=== PATIENT | female | born 1970 | race Caucasian/White ===

== ENCOUNTER 2016-04-01 02:56 | Observation (INO) | payer OTHER ==
[2016-04-01] MEDS ORDERED: MORPHINE 4 MG/ML INJECTION IV ONE (03:07)
[2016-04-01] MEDS ORDERED: NS 1,000 ML IV ONE (03:07)
[2016-04-01] MEDS ORDERED: ONDANSETRON HCL 4 MG/2 ML VIAL IV ONE ×2 (03:07→10:00)
[2016-04-01 03:08] VITALS: BMI 44.5
--- NOTE | 2016-04-01 03:09 | EDPRACDOC ---
- General Information Information Source: Patient Mode Of Arrival: Car - History of Present Illness Onset: LAST NIGHT HPI: PT PRESENTS WITH RIGHT FLANK PAIN THAT BEGAN TONIGHT. STATES SHE HAS NAUSEA WITHOUT VOMITING. PT HAS HX OF KIDNEY STONES AND STATES THIS PAIN IS CONSISTENT Pain Location: Reports: Right, Flank Pain Radiates To: Reports: None Pain Caused By: Reports: Spontaneous Circumstances: Reports: Unknown Relevant History: Reports: Urolithiasis Currently ?: No Pain Severity: Reports: Moderate Pain Quality: Reports: Sharp, Stabbing Worsened By: Reports: Movement Associated Signs and Symptoms: Reports: Nausea <Madeleine Ferrer - Last Filed: 04/01/16 03:07> <Brent Asif - Last Filed: 04/01/16 05:07> - General Information Chief Complaint: Back Pain Stated Complaint: RT BACK PAIN Time Seen by Provider: 04/01/16 03:05 Home Medications: Home Medications Ferrous Sulfate 325 mg PO DAILY 09/05/15 Pantoprazole Sodium 40 mg PO DAILY 09/05/15 Venlafaxine HCl ER [Effexor XR] 150 mg PO DAILY 09/05/15 Vit A/Vit C/Vit E/Zinc/Copper [Preservision Areds Tablet] 1 tab PO DAILY Mometasone Furoate 1 gm TOP BID PRN 10/19/15 Oxycodone Immediate Release [Oxycodone Immediate Release (OxyIR)] 5 mg PO Q6H PRN #30 tab 10/19/15 Sulfamethoxazole/Trimethoprim [Bactrim Ds Tablet] 1 tab PO BID 10/19/15 Allergies/Adverse Reactions: Allergies Allergy/AdvReac Type Severity Reaction Status Date / Time No Known Allergies Allergy Verified 10/19/15 19:19 ED Past Medical History - History Reviewed Yes Nurses notes reviewed and agree except as marked - Patient Medical History Cardiac History: Reports: Cardiac Catheterization (2010), Hypercholesterolemia. Denies: Hypertension, Congestive Heart Failure, Heart Attack, CABG, Pacemaker Respiratory History: Reports: Asthma. Denies: COPD, Pneumonia, Emphysema, Pulmonary Embolism GI/ History: Reports: Kidney Stones (2010), Gastroesophageal Reflux Musculoskeletal History: Reports: Arthritis, Osteoarthritis Psychological History: Denies: Depression, Anxiety, Bipolar Disorder Systemic History: Reports: Anemia (2014) Surgical History: Reports: Cholecystectomy, Cardiac Catheterization (2010), Tonsillectomy, Tonsillectomy/Adnoidectomy, Other (ablation, knee, tubal.). Denies: CABG, Angioplasty - Family Medical History Reports: Hypertension (mother), Diabetes (mother), Cancer (father), Stroke ( mother), Cardiac Disorders (maternal grandparents) - Social Medical History Smoking Status: Never smoker <Madeleine Ferrer - Last Filed: 04/01/16 03:07> EDM Review of Systems - Review of Systems ROS Negative Except as Marked: Yes All systems reviewed and were negative except as marked <Madeleine Ferrer - Last Filed: 04/01/16 03:07> - Physical Exam Constitutional: Alert Oriented to: Time, Person, Place Last recorded Vital Signs: Oxygen Pulse Oxygen Saturation O2 Device Oxygen Flow Rate Fraction of Inspired Oxygen ( FIO2) - HEENT Head: Normal ( normocephalic) Eye Exam: Normal (PERRL, EOMI, Sclera white) Oropharynx: Normal (Pharynx:Moist without exudate,Gums-no swelling) Nose: No Symptoms Reported (septum midline) Neck: Normal (FROM, trachea at midline) - Respiratory/Cardiovascular Respiratory: Normal - CTA (BBS clear to auscultation without adventitious sounds ) Cardiovascular: Normal (RRR without murmur, gallop or rub) - GI Auscultation: Normal (NABS) Palpation: Normal (Soft,No rebound or guarding, non distended) Tenderness: Moderate, Other (RIGHT FLANK) Obrien's Sign: Negative Rectal Exam: Deferred - Musculoskeletal Back: Normal (Non-Tender) Extremities: Normal (Normal tone, Pulses 2+ No cyanosis or edema, FROM) - Integumentary Skin: Normal, Warm, Dry Lymphatics: Normal (no adenopathy) - Neurologic Memory Impaired: Normal Motor Function: Normal (Normal tone, Pulses 2+ No cyanosis or edema, FROM) Cranial Nerve: Normal (CN II-X11 intact sensation, strength 5/5) Cerebellar: Normal Mood Description: Normal Perception: Normal <Madeleine Ferrer - Last Filed: 04/01/16 03:07> - Physical Exam Last recorded Vital Signs: Last Vital Signs Temp 98.5 F 04/01/16 03:05 Pulse 102 04/01/16 03:05 Resp 22 04/01/16 03:05 BP 162/90 01/04/17 03:05 Pulse Ox 96 04/01/16 03:05 Oxygen Pulse Oxygen Saturation 96 O2 Device Room Air Oxygen Flow Rate Fraction of Inspired Oxygen ( FIO2) <YefriBrentjacquelyn Montemayor - Last Filed: 04/01/16 05:07> ED Back Exam - Neurologic Motor Deficit: None Reflexes: Normal - Musculoskeletal Cervical: Normal Thoracic: Normal Lumbar: Normal Midline: Normal Paraspinous: Tender Straight Leg Raise: Negative Pelvis: Normal <Madeleine Ferrer W - Last Filed: 04/01/16 03:07> - Differential Diagnosis Urinary obstruction, Urolithiasis, Urinary tract infection <Madeleine Ferrer - Last Filed: 04/01/16 03:07> - Re-evaluation Re-evaluation 1 Re-evaluation Time: 05:05 (i asumed care of the patient and interviewed her personally. i discussed the case w dr jaramillo, urology, who willadmit the patient.) - Results 04/01/16 03:20 04/01/16 03:20 WBC 5.1 xk/uL (3.8-10.8) 04/01/16 03:20 RBC 4.72 xM/uL (4.20-5.40) 04/01/16 03:20 Hgb 13.1 g/dL (12.0-16.0) 04/01/16 03:20 Hct 39.4 % (36-47) 04/01/16 03:20 MCV 84 fL (81-99) 04/01/16 03:20 MCH 27.7 pg (27-32) 04/01/16 03:20 MCHC 33.1 g/dl (33-36) 04/01/16 03:20 RDW 14.3 % (11.5-14.5) 04/01/16 03:20 Plt Count 240 xk/uL (130-400) 04/01/16 03:20 MPV 8.3 fL (7.4-10.4) 04/01/16 03:20 Neut % (Auto) 54.2 % (45-76) 04/01/16 03:20 Lymph % (Auto) 31.2 % (17-44) 04/01/16 03:20 [place] % (Auto) 9.4 % (3-10) 04/01/16 03:20 Eos % (Auto) 4.3 % (0-5) 04/01/16 03:20 Baso % (Auto) 0.9 % (0-2) 04/01/16 03:20 Absolute Neuts (auto) 2.75 xk/uL (1.7-8.2) 04/01/16 03:20 Absolute Lymphs (auto) 1.58 xk/uL (0.65-4.75) 04/01/16 03:20 Sodium 143 mEq/L (137-146) 04/01/16 03:20 Potassium 3.7 mEq/L (3.5-5.1) 04/01/16 03:20 Chloride 104 mEq/L (98-107) 04/01/16 03:20 Carbon Dioxide 28 mMOL/L (22-33) 04/01/16 03:20 Anion Gap 15 mEq/L (8-16) 04/01/16 03:20 BUN 16 MG/DL (7-17) 04/01/16 03:20 Creatinine 0.70 MG/DL (0.52-1.04) 04/01/16 03:20 Estimated GFR (MDRD) > 60 mL/min (>=60) 04/01/16 03:20 Glucose 122 MG/DL (70-99) H 04/01/16 03:20 Calculated Osmolality 277 MOs/Kg (270-290) 04/01/16 03:20 Calcium 8.8 MG/DL (8.4-10.2) 04/01/16 03:20 Corrected Calcium 9.0 MG/DL (8.4-10.2) 04/01/16 03:20 Total Bilirubin 0.4 MG/DL (0.2-1.3) 04/01/16 03:20 AST 44 IU/L (14-36) H 04/01/16 03:20 ALT 37 IU/L (9-52) 04/01/16 03:20 Alkaline Phosphatase 133 IU/L (38-126) H 04/01/16 03:20 Total Protein 7.6 G/DL (6.3-8.2) 04/01/16 03:20 Albumin 3.8 G/DL (3.5-5.0) 04/01/16 03:20 Urine Color Dark yellow 04/01/16 03:13 Urine Clarity Sl cldy 04/01/16 03:13 Urine pH 6.0 (5.0-8.0) 04/01/16 03:13 Ur Specific [place] 1.030 (1.003-1.035) 04/01/16 03:13 Urine Protein 2+ (NEG/TRACE) H 04/01/16 03:13 Urine Glucose (UA) Neg (NEGATIVE) 04/01/16 03:13 Urine Ketones Neg (NEGATIVE) 04/01/16 03:13 Urine Occult Blood 3+ (NEG/TRACE) H 04/01/16 03:13 Urine Nitrite Neg (NEGATIVE) 04/01/16 03:13 Urine Bilirubin Neg (NEGATIVE) 04/01/16 03:13 Urine Urobilinogen <2.0 MG/DL (0-1) 04/01/16 03:13 Ur Leukocyte Esterase Neg (NEGATIVE) 04/01/16 03:13 Urine RBC 10-20 (0-5) H 04/01/16 03:13 Ur Epithelial Cells 1+ 04/01/16 03:13 Amorphous Sediment 1+ 04/01/16 03:13 Urine Bacteria 1+ (NEG/FEW) H 04/01/16 03:13 Urine Mucus Mod (NEG/OCC) H 04/01/16 03:13 Urine Yeast Many (NONE) H 04/01/16 03:13 Lab Results 04/01/16 04/01/16 04/01/16 03:20 03:20 03:13 WBC 5.1 RBC 4.72 Hgb 13.1 Hct 39.4 MCV 84 MCH 27.7 MCHC 33.1 RDW 14.3 Plt Count 240 MPV 8.3 Neut % (Auto) 54.2 Lymph % (Auto) 31.2 [place] % (Auto) 9.4 Eos % (Auto) 4.3 Baso % (Auto) 0.9 Absolute Neuts (auto) 2.75 Absolute Lymphs (auto) 1.58 Sodium 143 Potassium 3.7 Chloride 104 Carbon Dioxide 28 Anion Gap 15 BUN 16 Creatinine 0.70 Estimated GFR (MDRD) > 60 Glucose 122 H Calculated Osmolality 277 Calcium 8.8 Corrected Calcium 9.0 Total Bilirubin 0.4 AST 44 H ALT 37 Alkaline Phosphatase 133 H Total Protein 7.6 Albumin 3.8 Urine Color Dark yellow Urine Clarity Sl cldy Urine pH 6.0 Ur Specific [place] 1.030 Urine Protein 2+ H Urine Glucose (UA) Neg Urine Ketones Neg Urine Occult Blood 3+ H Urine Nitrite Neg Urine Bilirubin Neg Urine Urobilinogen <2.0 Ur Leukocyte Esterase Neg Urine RBC 10-20 H Ur Epithelial Cells 1+ Amorphous Sediment 1+ Urine Bacteria 1+ H Urine Mucus Mod H Urine Yeast Many H - Diagnostic Imaging Abdomen Image interpreted by: Radiologist (1x1 cm proximal r ureter stone) <Brent Asif - Last Filed: 04/01/16 05:07> - Departure Disposition: Home Education/Counseling Given To: Patient Education/Counseling Given Regarding: Diagnosis, Treatment, Prognosis, Follow Up <Madeleine Ferrer - Last Filed: 04/01/16 03:07> Decision Time to Discharge: 05:06 - Departure Yes I personally saw and evaluated the patient. Disposition: Admit IP To This Hospital Decision to Admit Time: 05:07 Decision to admit date: 04/01/16 Decision to admit: from ED - Physician Consulted Urology Time Called: 05:07 (dr jaramillo.) <Brent Asif - Last Filed: 04/01/16 05:07> - Departure Condition: Stable Final Diagnosis: Ureteral stone with hydronephrosis Referrals: Brett Salmon II, MD [Primary Care Provider] - One Week
[2016-04-01 03:35] LABS: AUTOMATED BASOPHIL 0.9 % (0-2); AUTOMATED EOSINOPHIL 4.3 % (0-5); AUTOMATED LYMPH 31.2 % (17-44); AUTOMATED MONOCYTE 9.4 % (3-10); AUTOMATED NEUTROPHIL 54.2 % (45-76); MPV 8.3 fL (7.4-10.4)
[2016-04-01 03:37] LABS: AMORPHOUS 1+; LEUKOCYTES/URINE NEG (NEGATIVE); NITRITE/URINE NEG (NEGATIVE); URINE OCCULT BLOOD 3+ (NEG/TRACE)
[2016-04-01] MEDS ORDERED: FLUCONAZOLE 150 MG TAB PO ONE (03:47)
[2016-04-01 03:55] LABS: BLOOD UREA NITROGEN 16 MG/DL (7-17); CALCIUM 8.8 MG/DL (8.4-10.2); CALCULATED OSMOLALITY 277 MOs/Kg (270-290); CHLORIDE 104 mEq/L (98-107); GLUCOSE 122 MG/DL (70-99); SODIUM LEVEL 143 mEq/L (137-146); TOTAL PROTEIN 7.6 G/DL (6.3-8.2)
[2016-04-01] MEDS ORDERED: PROMETHAZINE 25 MG/ML VIAL IV ONE (04:03)
[2016-04-01] MEDS ORDERED: HYDROmorphone 1 MG INJECTION IV ONE (04:03)
--- NOTE | 2016-04-01 04:06 | DIRPT ---
CLINICAL DATA: Acute onset of right flank pain. Initial encounter. EXAM: CT ABDOMEN AND PELVIS WITHOUT CONTRAST TECHNIQUE: Multidetector CT imaging of the abdomen and pelvis was performed following the standard protocol without IV contrast. COMPARISON: CT of the abdomen and pelvis from 08/09/2015 FINDINGS: The visualized lung bases are clear. The liver and spleen are unremarkable in appearance. The patient is status post cholecystectomy, with clips noted at the gallbladder fossa. The pancreas and adrenal glands are unremarkable. There is mild right-sided hydronephrosis, with a large obstructing 1.1 x 1.0 cm stone proximally at the right ureteropelvic junction. The left kidney is unremarkable in appearance. No nonobstructing renal stones are identified. No free fluid is identified. The small bowel is unremarkable in appearance. The stomach is within normal limits. No acute vascular abnormalities are seen. The appendix is normal in caliber, without evidence of appendicitis. The colon is unremarkable in appearance. The bladder is relatively decompressed and not well assessed. The uterus is unremarkable in appearance. The ovaries are relatively symmetric. No suspicious adnexal masses are seen. No inguinal lymphadenopathy is seen. No acute osseous abnormalities are identified. The patient is status post thoracolumbar spinal fusion at T11-L3. IMPRESSION: Mild right-sided hydronephrosis, with a large obstructing 1.1 x 1.0 cm stone proximally at the right ureteropelvic junction. Electronically Signed By: Jose Johnson M.D. On: 04/01/2016 04:04
[2016-04-01] MEDS ORDERED: ONDANSETRON HCL 4 MG/2 ML VIAL IV PRN ×3 (05:18→12:51)
[2016-04-01] MEDS: HYDROmorphone 1 MG INJECTION IV PRN ×2 (05:58→09:02)
[2016-04-01] MEDS ORDERED: D5W-1/4NS 1,000 ML IV SCH (06:00)
[2016-04-01] MEDS ORDERED: Vaccine Screening Complete SCH (07:00)
--- NOTE | 2016-04-01 09:49 | HISTPHYS ---
- Chief Complaint Pain in the rt flank few hours. - Past Medical History Cardiac History: Reports: Cardiac Catheterization (2010), Hypercholesterolemia, Other (Had nerve ablasion in the heart in 2010 for arrhythmia). Denies: Hypertension, Congestive Heart Failure, Heart Attack, CABG, Pacemaker Respiratory History: Reports: Asthma. Denies: COPD, Pneumonia, Emphysema, Pulmonary Embolism GI/ History: Reports: Kidney Stones (2010), Gastroesophageal Reflux. Denies: Hepatitis (type) Musculoskeletal History: Reports: Arthritis, Osteoarthritis Systemic History: Reports: Anemia (2014) Psychological History: Denies: Anxiety, Bipolar Disorder, Depression - Surgical History Reports: Back Surgery (1996), Cholecystectomy, Knee Surgery (2010), T&A. Denies : Angioplasty, CABG, Coronary Stent - Family History Reports: Hypertension (mother), Diabetes (mother), Cancer (father), Stroke ( mother), Cardiac Disorders (maternal grandparents) - Allergies Allergies No Known Allergies Allergy (Verified 10/19/15 19:19) - Medications Home Medications Ferrous Sulfate 325 mg PO BID 09/05/15 Pantoprazole Sodium 40 mg PO DAILY 09/05/15 Venlafaxine HCl ER [Effexor XR] 150 mg PO DAILY 09/05/15 Vit A/Vit C/Vit E/Zinc/Copper [Preservision Areds Tablet] 1 tab PO DAILY Mometasone Furoate 1 gm TOP BID PRN 10/19/15 - Social History Travel Outside of [place] in the Last 3 Months?: No Smoking Status: Never smoker - Exam Vital Signs: Temperature: 98.2 F (04/01/16 05:58) HR: 75 (04/01/16 05:58) RR: 20 (04/01/16 05:58) BP: 148/90 (04/01/16 05:58) Pulse Ox: 95 (04/01/16 05:58) General: Alert, Oriented x3, Cooperative, No acute distress, Obese HEENT: Normal Cardiovascular: Regular rate Gastrointestinal: Soft, Other (Tender in the rt CVA on percussion) Psych/Mental Status: Appropriate - Labs Result Diagrams: 04/01/16 03:20 04/01/16 03:20 Cysto retrograde pyelogram and placement of DJ stent on the rt side.This was discussed with the Pt nd her who was with her. Plan to do ESWL at later date.
[2016-04-01] MEDS ORDERED: SUCCINYLCHOLINE 20 MG/1 ML INJ 10 ML MDV IV ONE (10:00)
[2016-04-01] MEDS ORDERED: MIDAZOLAM 2 MG/2 ML VIAL IV ONE (10:00)
[2016-04-01] MEDS ORDERED: FENTANYL 250 MCG/5 ML VIAL IV ONE (10:00)
[2016-04-01] MEDS ORDERED: LIDOCAINE 100 MG PFS IV ONE (10:00)
[2016-04-01] MEDS ORDERED: PROPOFOL 200 MG/20 ML VIAL IV ONE (10:00)
[2016-04-01] MEDS ORDERED: HYDROmorphone 1 MG INJECTION IV PRN ×2 (11:26)
[2016-04-01] MEDS ORDERED: MEPERIDINE 25 MG/ML TUBEX IV PRN (11:26)
[2016-04-01] MEDS ORDERED: PROMETHAZINE 25 MG/ML VIAL IV PRN ×2 (11:26)
[2016-04-01] MEDS ORDERED: hydrALAZINE 20 MG/ML VIAL IV PRN (11:26)
[2016-04-01] MEDS ORDERED: FENTANYL 100 MCG/2 ML VIAL IV PRN ×2 (11:26)
[2016-04-01] MEDS ORDERED: LABETALOL 20 MG/4 ML SYRINGE IV PRN (11:26)
[2016-04-01] MEDS ORDERED: ONDANSETRON HCL 4 MG ODT TAB PO PRN (11:26)
--- NOTE | 2016-04-01 11:27 | SC.ANESPOS ---
Post-Anesthesia Note LOC: [facility] on Calling Post-Anesthesia Assessment: Awake, Returned to Baseline, Hemodynamically Stable , Pain Control Adequate Phase I & II Recovery Complete: Yes Apparent Anesthesia Complication: No : N - Vital Signs Blood Pressure: 145/96 Pulse: 103 Resp Rate: 18 O2 Sat: 95 Temp: 97.1 F
[2016-04-01] MEDS ORDERED: ISOVUE-300 (61%) 50 ML ONE (11:50)
--- NOTE | 2016-04-01 11:58 | HIM.ANES ---
Anesthesia Evaluation & Plan - Focused Review of Systems Now: No Cardiac History: Yes: Hx Cardiac Catheterization (2010 - No ischemia), Hx Cardia Arrhythmia (Heart beats too fast at times - S/P ablation - stable), Hx Cardiac Disorders (Neg perfusion study ) No: Hx Hypertension, Hx Angina, Hx Heart Attack, Hx Angioplasty, Hx Coronary Stent, Hx Pacemaker, Hx Internal Defibrillator, Hx Heart Murmur, Hx Afib/ Aflutter, Hx Abdominal Aortic Aneurysm, Hx Abnormal Cholesterol/Hyperlipidemia, Hx Aneurysm, Hx Cardiomegaly, Hx Congestive Heart Failure, Hx Coronary Artery Bypass Graft, Hx Deep Vein Thrombosis HEENT: Yes: Hx Vision Problem (wears glasses), Other HEENT Problems No: Cataracts, Cataract Removal, Glaucoma, Macular Degeneration, Hx Dysphagia , Temporomandibular Joint Disease (TMJ), Hx Deviated Septum, Hx Ear Problem Respiratory: Yes: Hx Asthma, Hx Snoring No: Hx Emphysema, Hx Chronic Obstructive Pulmonary Disease (COPD), Hx Sleep Apnea, Hx Home O2, Hx BiPAP Dependent, Hx CPAP Dependent, Hx Recent Cold/Flu, Hx Pneumonia Gastrointestinal: Yes: Hx Gastroesophageal Reflux Disease (Controlled) Neurological/Musculoskeletal: No: Hx Neurological Disorders Psychological: No Hx Anxiety, No Hx Depression, No Hx Mental/Emotional Disorders , No Hx Bipolar Disorder Blood/Autoimmune: Yes: Hx Blood Transfusions (1996), Hx Anemia (2014) No: Hx AIDS, Hx Hepatitis (type) Smoking Status: Never smoker Hx Stress Test (date): Yes (2010) Hx Echocardiogram (date): Yes (2010) Hx Chest Xray (date): Yes (2010) Surgical History: Yes: T&A, Cholecystectomy, Back (1996), Knee (2010), Other ( ablation, knee, tubal.) No: Ablation, Carotid Endarterectomy, CABG, Nasal Other Surgical History: Knee replacement 2010, Tonsil removed, leg surgery from [facility], back surgery, - Focused Physical Exam NPO since: 0200 Mallampati: Class II Neck: Full Range of Motion Dental: Normal - no significant findings Cardiovascular/Chest: Normal Respiratory: Lungs clear Any problems with anesthesia, including nausea and vomiting?: No Any relatives with a history of Malignant Hyperthermia?: No Beta Bradley given (if appropriate): N/A Other: Problem List Problem Status Onset Ureteral stone with hydronephrosis Acute Accidental fall Acute Anemia Acute Angina Acute Cellulitis Acute GERD (gastroesophageal reflux disease) Acute Leg pain Acute Dyslipidemia Chronic Dyspnea Chronic Obesity Chronic Allergies Allergy/AdvReac Type Severity Reaction Status Date / Time No Known Allergies Allergy Verified 10/19/15 19:19 Home Medications Medication Instructions Recorded Last Taken Type Ferrous Sulfate 325 mg PO BID 09/05/15 03/31/16 History Pantoprazole Sodium 40 mg PO DAILY 09/05/15 03/31/16 History Venlafaxine HCl ER [Effexor XR] 150 mg PO DAILY 09/05/15 03/31/16 History Vit A/Vit C/Vit E/Zinc/Copper 1 tab PO DAILY 09/05/15 03/31/16 History [Preservision Areds Tablet] Mometasone Furoate 1 gm TOP BID PRN 10/19/15 10/19/15 History Height and Weight Patient's weight 267 lb 4.8 oz Weight (Calculated Kilograms) 121.245 Vital Signs Temperature 97.1 F L 04/01/16 11:27 Pulse Rate 103 04/01/16 11:27 Respiratory Rate 18 04/01/16 11:27 Blood Pressure 145/96 04/01/16 11:27 Pulse Oxygen Saturation 95 04/01/16 11:27 - Anesthetic Plan Anesthesia Type: General ASA Class: 2 -: I have examined this patient and reviewed the medical record. The patient has been assessed prior to anesthesia. Risks and benefits of anesthesia and anesthetic technique options have been discussed and all questions answered. The patient accepts the risk and desires me to proceed with the planned anesthetic.
[2016-04-01] MEDS ORDERED: Levofloxacin 500 mg/100 ml D5W 500 MG/100 ML RTU IV ONE ×3 (12:10→13:00)
[2016-04-01] MEDS ORDERED: HYDROCODONE 5 MG/ACETAMIN 325 MG TAB PO PRN (12:51)
[2016-04-01] MEDS ORDERED: OXYCODONE HCL 5 MG TABLET PO PRN (12:56)
[2016-04-01] MEDS ORDERED: D5W/LR 1,000 ML IV SCH (13:00)
--- NOTE | 2016-04-01 13:04 | HIMOPRPT ---
DATE OF PROCEDURE: 04/01/16 PREOPERATIVE DIAGNOSIS: [Rt UPJ stone with obstruction]. POSTOPERATIVE DIAGNOSIS: [Same]. PROCEDURE PERFORMED: Cystoscopy, [right/left] retrograde pyelogram, and double- J ureteral stent.. ANESTHESIA: General by endotracheal tube ANESTHESIOLOGIST:. SURGEON: Sachin Livingston MD PROCEDURE IN DETAIL: The patient was brought to the operating room and placed in supine position. General anesthesia by endotracheal tube was given. Once adequate level of anesthesia was obtained, the patient was placed in lithotomy position. Genitalia was prepped and draped in usual sterile manner. The cystoscopy was carried down through [23] size of operative cystoscope. The meatus is normal.Bladder interior was examined. Both ureteral orifices were seen. There is no eflux on the right side. No other abnormality within the bladder was noted. [Righ retrograde pyelogram was carried out through 5-Micronesian cone-tipped ureteral catheter which was introduced without any difficulty. Contrast went up to the stone and went to the renal pelvis. a guidewire was passed and it bypassed the stone, went to the renal pelvis. and a guide wire was passed . This pushed the stone into the renal pelvis.. In the end of the procedure, a double-J ureter stent, size [6]-Micronesian and 24 cm long with a tether was inserted. Tether was brought out through the urethra and taped. The position of the stent was checked and found to be very adequate upper end in the renal pelvis and lower end in the bladder. The patient was then returned to the recovery room in stable and satisfactory condition. Discharge Medications:Oxycodon 5mg q4h PRN (30), Levaquin 5oomg daily for 7 days. Follow-up: The patient will be discharged to be followed in the office and will plan ESWL as soon as possible.
--- NOTE | 2016-04-01 13:07 | PCM.DCS92 ---
Discharge Disposition: Home Discharge Condition: Improved Cognitive Discharge Status: Unimpaired Fuctional Discharge Status: Independent Physician Follow up/Referrals: Brett Salmon II, MD [Primary Care Provider] - One Week (Follow up with Dr. Livingston in 1 week) Diet at Discharge: As Tolerated, Regular Activity: No Restrictions, As Tolerated, Other (see below) (Do not pull the string from the urethra.) - DC Summary Notes Hospital Course Note:: Discharge summary on patient named GALA DICKINSON admitted to [facility] on 04/01/16 by Sachin Livingston MD. Date of discharge is []. Following admission the pt was fgiven analgesics and she underwent cysto retrograde pyelogram and placement of a DJ stent after the stone was kmanipulated. She will be discharged and followed in the office and ESWL will be arranged as soon as possible.
[2016-04-01 16:27] VITALS: BP 145/96; PULSE 103; TEMP 97.1
[2016-04-02] MEDS ORDERED: FLU VACCINE (Afluria) 0.5 ML DOSE IM ONE (08:00)
[2016-04-02] MEDS ORDERED: PNEUMOCOCCAL 0.5 ML VIAL IM ONE (08:00)
[2016-04-02] MEDS ORDERED: LEVOFLOXACIN 500 MG TAB PO SCH (09:00)
== END 2016-04-01 17:58 | disposition home or self-care (01) ==
LOC: ED 02:56 → MPS3 05:05
PROVIDERS: ADMIT Urology; ATTEND Urology
PROC: BT1D1ZZ Fluoroscopy of Right Kidney, Ureter and Bladder using Low Osmolar Contrast (ICD-10-PCS; 2016-04-01)
PROC: 0T768DZ Dilation of Right Ureter with Intraluminal Device, Via Natural or Artificial Opening Endoscopic (ICD-10-PCS; principal; 2016-04-01 12:00)
DX: N20.0 Calculus of kidney (principal); E78.00 Pure hypercholesterolemia, unspecified; Z79.899 Other long term (current) drug therapy
CPT/HCPCS: 36415; 52005; 52332; 74176; 80053; 81001; 85025; 96361; 96374; 96375; 99284; C2617; G0378; J0330; J1170; J1956; J2001; J2250; J2270; J2405; J2550; J3010; J3490

== ENCOUNTER 2016-04-13 18:12 | Emergency (ER) | payer OTHER ==
[2016-04-13 18:19] VITALS: TEMP 99.4; BMI 43.4
[2016-04-13] MEDS ORDERED: HYDROmorphone 1 MG INJECTION IV ONE (18:51)
[2016-04-13] MEDS ORDERED: SODIUM CHLORIDE 0.9% 3 ML FLUSH FLUSH PRN (18:51)
[2016-04-13] MEDS ORDERED: NS 1,000 ML IV ONE (18:51)
[2016-04-13] MEDS ORDERED: ONDANSETRON HCL 4 MG/2 ML VIAL IV STA (18:51)
--- NOTE | 2016-04-13 18:54 | EDPRACDOC ---
- General Information Chief Complaint: Abdominal Pain Stated Complaint: FLANK PAIN Time Seen by Provider: 04/13/16 18:34 Information Source: Patient Mode Of Arrival: Car Home Medications: Home Medications Ferrous Sulfate 325 mg PO DAILY 09/05/15 Pantoprazole Sodium 40 mg PO DAILY 09/05/15 Venlafaxine HCl ER [Effexor XR] 150 mg PO DAILY 09/05/15 Vit A/Vit C/Vit E/Zinc/Copper [Preservision Areds Tablet] 1 tab PO DAILY Levofloxacin [Levaquin] 500 mg PO DAILY 04/01/16 Ciprofloxacin HCl [Cipro] 500 mg PO BID 04/13/16 Hydrocodone Bit/Acetaminophen [[place] 7.5-325 Tablet] 1 tab PO QID PRN 04/13/16 Ketorolac Tromethamine [Toradol] 10 mg PO Q6H PRN #20 tab 04/13/16 Oxycodone HCl [Roxicodone] 5 mg PO Q4-6H PRN #30 tablet 04/13/16 Allergies/Adverse Reactions: Allergies Allergy/AdvReac Type Severity Reaction Status Date / Time No Known Allergies Allergy Verified 04/10/16 08:31 - History of Present Illness Onset: sea captain HPI: PT PRESENTS WITH LOW GRADE FEVER, LEFT FLANK PAIN, AND NAUSEA. RECENT LITHOTRIPSY 4 DAYS AGO FOR RIGHT SIDED STONES. Pain Location: Reports: Flank (LEFT) Last Menstrual Period: 2 weeks HOP STRAINER : No ED Past Medical History - Patient Medical History Cardiac History: Reports: Cardiac Catheterization (2010 - No ischemia), Hypercholesterolemia. Denies: Coronary Artery Disease, Hypertension, Congestive Heart Failure, Heart Attack, CABG, Pacemaker Respiratory History: Reports: Asthma. Denies: COPD, Pneumonia, Emphysema, Pulmonary Embolism GI/ History: Reports: Kidney Stones (2010), Gastroesophageal Reflux Musculoskeletal History: Reports: Arthritis, Osteoarthritis Psychological History: Reports: Anxiety. Denies: Depression, Bipolar Disorder Systemic History: Reports: Anemia (2014). Denies: Cancer Surgical History: Reports: Cholecystectomy, Cardiac Catheterization (2010 - No ischemia), Tonsillectomy, Tonsillectomy/Adnoidectomy, Other (ablation, knee, tubal.). Denies: CABG, Hysterectomy, Angioplasty - Family Medical History Reports: Hypertension (father), Diabetes (mother, grandparents), Cancer (Dad, colon), Stroke (mother), Cardiac Disorders (grandparents) - Social Medical History Smoking Status: Never smoker EDM Review of Systems - Review of Systems ROS Negative Except as Marked: Yes All systems reviewed and were negative except as marked Constitutional: Fever, Fatigue, Weakness Respiratory: negative: Shortness of Breath Cardiovascular: negative: Chest Pain Gastrointestinal: Nausea, Pain (LEFT FLANK TO LLQ). negative: Diarrhea Genitourinary: Hematuria. negative: Dysuria - Physical Exam Constitutional: Alert, Distress. negative: Well appearing Oriented to: Time, Person, Place Last recorded Vital Signs: Last Vital Signs Temp 99.4 F 04/13/16 18:14 Pulse 90 04/13/16 22:01 Resp 20 04/13/16 22:01 BP 116/58 L 04/13/16 22:01 Pulse Ox 95 04/13/16 22:01 Oxygen Pulse Oxygen Saturation 95 O2 Device Room Air Oxygen Flow Rate Fraction of Inspired Oxygen ( FIO2) - HEENT Head: negative: Deformity, Laceration Eye Exam: negative: Conjunctival Injection, Pale Conjunctiva Oropharynx: Membranes Dry Nose: negative: Congestion Neck: negative: Limited ROM - Respiratory/Cardiovascular Respiratory: Normal - CTA. negative: Tachypnea Cardiovascular: Tachycardia. negative: Bradycardia, Irregular - GI Auscultation: Normal Palpation: Normal Tenderness: Non tender - Musculoskeletal Back: CVA Tenderness (LEFT) - Integumentary Skin: Warm, Dry. negative: Rash - Neurologic Memory Impaired: Normal Motor Function: Normal Mood Description: Anxious, Appropriate Thought: Coherent Perception: Normal - Re-evaluation Re-evaluation 1 Re-evaluation Time: 22:[address] MCDANIEL. RECOMMENDS 1 GM ROCEPHIN AND INCREASE PAIN MEDS FOR HOME WITH FOLLOW UP IN OFFICE TOMORROW OR WEDNESDAY. - Results 04/13/16 18:21 04/13/16 18:21 WBC 12.2 xk/uL (3.8-10.8) H 04/13/16 18:21 RBC 4.81 xM/uL (4.20-5.40) 04/13/16 18:21 Hgb 13.2 g/dL (12.0-16.0) 04/13/16 18:21 Hct 40.3 % (36-47) 04/13/16 18:21 MCV 84 fL (81-99) 04/13/16 18:21 MCH 27.5 pg (27-32) 04/13/16 18:21 MCHC 32.9 g/dl (33-36) L 04/13/16 18:21 RDW 14.2 % (11.5-14.5) 04/13/16 18:21 Plt Count 279 xk/uL (130-400) 04/13/16 18:21 MPV 8.6 fL (7.4-10.4) 04/13/16 18:21 Neut % (Auto) 73.0 % (45-76) 04/13/16 18:21 Lymph % (Auto) 16.8 % (17-44) L 04/13/16 18:21 [place] % (Auto) 8.4 % (3-10) 04/13/16 18:21 Eos % (Auto) 1.2 % (0-5) 04/13/16 18:21 Baso % (Auto) 0.6 % (0-2) 04/13/16 18:21 Absolute Neuts (auto) 8.91 xk/uL (1.7-8.2) H 04/13/16 18:21 Absolute Lymphs (auto) 1.95 xk/uL (0.65-4.75) 04/13/16 18:21 Sodium 138 mEq/L (137-146) 04/13/16 18:21 Potassium 4.2 mEq/L (3.5-5.1) 04/13/16 18:21 Chloride 102 mEq/L (98-107) 04/13/16 18:21 Carbon Dioxide 25 mMOL/L (22-33) 04/13/16 18:21 Anion Gap 15 mEq/L (8-16) 04/13/16 18:21 BUN 12 MG/DL (7-17) 04/13/16 18:21 Creatinine 0.70 MG/DL (0.52-1.04) 04/13/16 18:21 Estimated GFR (MDRD) > 60 mL/min (>=60) 04/13/16 18:21 Glucose 107 MG/DL (70-99) H 04/13/16 18:21 Calculated Osmolality 266 MOs/Kg (270-290) L 04/13/16 18:21 Calcium 9.3 MG/DL (8.4-10.2) 04/13/16 18:21 Total Bilirubin 0.6 MG/DL (0.2-1.3) 04/13/16 18:21 AST 42 IU/L (14-36) H 04/13/16 18:21 ALT 94 IU/L (9-52) H 04/13/16 18:21 Alkaline Phosphatase 195 IU/L (38-126) H 04/13/16 18:21 Total Protein 8.0 G/DL (6.3-8.2) 04/13/16 18:21 Albumin 4.3 G/DL (3.5-5.0) 04/13/16 18:21 Urine Color Dark yellow 04/13/16 18:16 Urine Clarity Hazy 04/13/16 18:16 Urine pH 6.0 (5.0-8.0) 04/13/16 18:16 Ur Specific [place] 1.020 (1.003-1.035) 04/13/16 18:16 Urine Protein 2+ (NEG/TRACE) H 04/13/16 18:16 Urine Glucose (UA) Neg (NEGATIVE) 04/13/16 18:16 Urine Ketones Neg (NEGATIVE) 04/13/16 18:16 Urine Occult Blood 3+ (NEG/TRACE) H 04/13/16 18:16 Urine Nitrite Neg (NEGATIVE) 04/13/16 18:16 Urine Bilirubin Neg (NEGATIVE) 04/13/16 18:16 Urine Urobilinogen 0.2 MG/DL (0-1) 04/13/16 18:16 Ur Leukocyte Esterase 1+ (NEGATIVE) H 04/13/16 18:16 Urine RBC Tntc (0-5) H 04/13/16 18:16 Urine WBC 30-40 (0-5) H 04/13/16 18:16 Ur Epithelial Cells 2+ 04/13/16 18:16 Urine Bacteria Few (NEG/FEW) 04/13/16 18:16 Urine Mucus Mod (NEG/OCC) H 04/13/16 18:16 Lab Results 04/13/16 04/13/16 04/13/16 18:21 18:21 18:16 WBC 12.2 H RBC 4.81 Hgb 13.2 Hct 40.3 MCV 84 MCH 27.5 MCHC 32.9 L RDW 14.2 Plt Count 279 MPV 8.6 Neut % (Auto) 73.0 Lymph % (Auto) 16.8 L [place] % (Auto) 8.4 Eos % (Auto) 1.2 Baso % (Auto) 0.6 Absolute Neuts (auto) 8.91 H Absolute Lymphs (auto) 1.95 Sodium 138 Potassium 4.2 Chloride 102 Carbon Dioxide 25 Anion Gap 15 BUN 12 Creatinine 0.70 Estimated GFR (MDRD) > 60 Glucose 107 H Calculated Osmolality 266 L Calcium 9.3 Total Bilirubin 0.6 AST 42 H ALT 94 H Alkaline Phosphatase 195 H Total Protein 8.0 Albumin 4.3 Urine Color Dark yellow Urine Clarity Hazy Urine pH 6.0 Ur Specific [place] 1.020 Urine Protein 2+ H Urine Glucose (UA) Neg Urine Ketones Neg Urine Occult Blood 3+ H Urine Nitrite Neg Urine Bilirubin Neg Urine Urobilinogen 0.2 Ur Leukocyte Esterase 1+ H Urine RBC Tntc H Urine WBC 30-40 H Ur Epithelial Cells 2+ Urine Bacteria Few Urine Mucus Mod H Decision Time to Discharge: 22:57 - Departure Yes I personally saw and evaluated the patient. Disposition: Home Condition: Stable Final Diagnosis: Left flank pain Instructions: Acute Abdominal Pain (ED), Non-pharmacological Pain Management Therapies for Adults (GEN), Abdominal Pain (ED) Education/Counseling Given To: Patient Education/Counseling Given Regarding: Diagnosis, Treatment, Prognosis, Follow Up Referrals: Brett Salmon II, MD [Primary Care Provider] - As Needed Antolin Mcdaniel MD [Staff Physician] - Call for Appointment Prescriptions: Ketorolac Tromethamine [Toradol] 10 mg PO Q6H PRN #20 tab PRN Reason: Pain Oxycodone HCl [Roxicodone] 5 mg PO Q4-6H PRN #30 tablet PRN Reason: Breakthrough Pain
[2016-04-13 18:59] LABS: AUTOMATED BASOPHIL 0.6 % (0-2); AUTOMATED EOSINOPHIL 1.2 % (0-5); AUTOMATED LYMPH 16.8 % (17-44); AUTOMATED MONOCYTE 8.4 % (3-10); MPV 8.6 fL (7.4-10.4)
[2016-04-13 19:07] LABS: RBC/URINE TNTC (0-5); WBC/URINE 30-40 (0-5)
[2016-04-13 19:09] LABS: URINE OCCULT BLOOD 3+ (NEG/TRACE)
[2016-04-13 19:10] LABS: LEUKOCYTES/URINE 1+ (NEGATIVE); NITRITE/URINE NEG (NEGATIVE)
[2016-04-13 19:15] LABS: BLOOD UREA NITROGEN 12 MG/DL (7-17); CALCIUM 9.3 MG/DL (8.4-10.2); CALCULATED OSMOLALITY 266 MOs/Kg (270-290); CHLORIDE 102 mEq/L (98-107); GLUCOSE 107 MG/DL (70-99); SODIUM LEVEL 138 mEq/L (137-146)
[2016-04-13] MEDS ORDERED: Pharmacy Review for Metformin - IV Contrast Given SCH (21:00)
[2016-04-13 22:02] VITALS: BP 116/58; PULSE 90
--- NOTE | 2016-04-13 22:33 | DIRPT ---
CLINICAL DATA: Acute onset of left flank pain and nausea. Recent right-sided lithotripsy. Initial encounter. EXAM: CT ABDOMEN AND PELVIS WITH CONTRAST TECHNIQUE: Multidetector CT imaging of the abdomen and pelvis was performed using the standard protocol following bolus administration of intravenous contrast. CONTRAST: 100 mL of Isovue 370 IV contrast COMPARISON: CT of the abdomen and pelvis performed 04/01/2016, and abdominal radiograph performed 04/10/2016 FINDINGS: The visualized lung bases are clear. The liver and spleen are unremarkable in appearance. The patient is status post cholecystectomy, with clips noted along the gallbladder fossa. The pancreas and adrenal glands are unremarkable. Vaguely decreased enhancement is suggested along the posterior aspect of the right kidney, raising concern for underlying pyelonephritis. Scattered nonobstructing right renal stones measure up to 8 mm in size. The right ureteral stent is noted in expected position, with mild inflammation noted about the right renal pelvis and proximal ureter. The left kidney is unremarkable in appearance. No perinephric stranding is appreciated. No free fluid is identified. The small bowel is unremarkable in appearance. The stomach is within normal limits. No acute vascular abnormalities are seen. The appendix is normal in caliber, without evidence of appendicitis. The colon is unremarkable in appearance. The bladder is mildly distended and grossly unremarkable. The uterus is within normal limits. The ovaries are grossly symmetric. No suspicious adnexal masses are seen. No inguinal lymphadenopathy is seen. No acute osseous abnormalities are identified. Sclerotic change is noted at the superior endplate of L5. The patient is status post thoracolumbar spinal fusion at T11-L3. IMPRESSION: 1. Vaguely decreased enhancement suggested along the posterior aspect of the right kidney, raising concern for underlying right-sided pyelonephritis. Mild inflammation noted about the right renal pelvis and proximal right ureter. 2. Right-sided ureteral stent noted in expected position. 3. Scattered nonobstructing right renal stones measure up to 8 mm in size. 4. Left kidney is unremarkable in appearance. Electronically Signed By: Jose Johnson M.D. On: 04/13/2016 22:31
[2016-04-13] MEDS ORDERED: CEFTRIAXONE 1 GM in D5W 100 ML IV ONE (22:53)
[2016-04-13] MEDS ORDERED: KETOROLAC TROMETH 30 MG/ML VIAL IV ONE (22:54)
[2016-04-14] MEDS ORDERED: SODIUM CHLORIDE 0.9% 3 ML FLUSH FLUSH SCH (06:00)
== END 2016-04-14 00:03 | disposition home or self-care (01) ==
LOC: ED 18:12
DX: R10.9 Unspecified abdominal pain (principal)
CPT/HCPCS: 36415; 74177; 80053; 81001; 85025; 87086; 96361; 96365; 96375; 99284; A9698; J0696; J1170; J1885; J2405; J7060